=== PATIENT | male | born 1985 | race Hispanic/Latino ===

== ENCOUNTER 2025-02-18 16:47 | Emergency (ER) | payer BC ==
[~2025-02-18] VITALS: Ht 180.3 cm; Wt 97.5 kg
[2025-02-18 17:00] VITALS: PULSE 88; RESP 16; TEMP 97.3; O2SAT 99
[2025-02-18] MEDS ORDERED: OFLOXACIN5 ML OP (17:25)
== END 2025-02-18 17:33 | disposition home or self-care (01) ==
LOC: ER 17:25
DX: H10.9 Unspecified conjunctivitis (principal)
CPT/HCPCS: 99284